=== PATIENT | male | born 2000 | race Two or more races ===

== ENCOUNTER 2022-10-15 11:36 | Emergency (ER) | payer MEDICAID, OTHER ==
[~2022-10-15] VITALS: Ht 167.6 cm; Wt 81.0 kg
[2022-10-15] MEDS ORDERED: LEVETIRACETAM 500MG PREMIX 100 ML IV ONE (13:00)
[2022-10-15 13:14] LABS: BASOPHILS % 0.6 % (0.0-2.0); EOSINOPHILS % 2.3 % (0.0-5.0); HEMATOCRIT. 47.8 % (42.0-52.0); HEMOGLOBIN. 16.1 g/dL (14.0-18.0); LYMPHOCYTES % 28.3 % (20.0-50.0); MEAN CORPUSCULAR HEMOGLOBIN 29.8 pg (28.0-32.0); MEAN CORPUSCULAR VOLUME 88.2 fL (80.0-94.0); MEAN PLATELET VOLUME 10.2 fl (7.4-10.4); MONOCYTES % 8.7 % (2.0-8.0); NEUTROPHILS % 60.1 % (40.0-76.0); PLATELET 210 x1000/uL (130-400); RED BLOOD CELL COUNT 5.42 mill/uL (4.7-6.1); RED CELL DISTRIBUTION WIDTH 12.5 % (11.6-14.6)
[2022-10-15 13:17] LABS: CHLORIDE 106 mEq/L (98-107)
[2022-10-15 13:21] LABS: PROTHROMBIN TIME 10.8 sec (9.6-11.0)
[2022-10-15 13:31] LABS: CARBAMAZEPINE < 0.5 ug/mL (4-12)
[2022-10-15 13:36] LABS: CLARITY URINE CLEAR (CLEAR); COLOR URINE YELLOW (YELLOW); KETONES URINE NEGATIVE (NEGATIVE); LEUKOCYTE ESTERASE URINE NEGATIVE (NEGATIVE); NITRITE URINE NEGATIVE (NEGATIVE); OCCULT BLOOD URINE NEGATIVE (NEGATIVE); PH URINE 5.5 (4.5-8.0); PROTEIN URINE TRACE (NEGATIVE); SPECIFIC GRAVITY URINE 1.017 (1.005-1.030); UROBILINOGEN URINE 0.2 E.U./dL (0.2-1.0)
[2022-10-15 13:50] LABS: HCG SCREEN NEGATIVE
[2022-10-15 14:00] VITALS: BP 115/77
[2022-10-15 14:04] LABS: *AMPHETAMINES SCREEN URINE NEGATIVE (NEGATIVE); *BARBITURATES SCREEN URINE NEGATIVE (NEGATIVE); *BENZODIAZEPINES SCREEN URINE NEGATIVE (NEGATIVE); *COCAINE SCREEN URINE NEGATIVE (NEGATIVE); CANNABINOID URINE SCREEN PRESUMTIVE POSITIVE (NEGATIVE); METHADONE URINE SCREEN NEGATIVE (NEGATIVE); OPIATES URINE SCREEN NEGATIVE (NEGATIVE); PHENCYCLIDINE URINE SCREEN NEGATIVE (NEGATIVE)
[2022-10-15] MEDS ORDERED: VALPROIC ACID 250MG CAPSULE PO NR (16:00)
== END 2022-10-15 16:32 | disposition home or self-care (01) ==
LOC: ER 13:30
DX: G40.909 Epilepsy, unspecified, not intractable, without status epilepticus (principal); F12.90 Cannabis use, unspecified, uncomplicated
CPT/HCPCS: 36415; 70450; 80053; 80156; 80165; 80185; 80305; 81003; 82962; 83605; 84703; 85025; 85610; 87040; 96365; 99285; J1953; Z7610

== ENCOUNTER 2024-02-13 17:06 | Emergency (ER) | payer MEDICAID, OTHER ==
[~2024-02-13] VITALS: Ht 172.7 cm; Wt 85.0 kg
[2024-02-13 17:10] VITALS: O2SAT 100
[2024-02-13 17:23] VITALS: TEMP 98.1
[2024-02-13 17:28] VITALS: BP 149/87; PULSE 120; RESP 18
[2024-02-13] MEDS: IBUPROFEN 600MG TABLET PO ONE (17:28)
== END 2024-02-13 18:12 | disposition home or self-care (01) ==
LOC: ER 17:06
DX: R56.9 Unspecified convulsions (principal)
CPT/HCPCS: 99283